=== PATIENT | female | born 1955 | race Caucasian/White ===

== ENCOUNTER 2025-04-06 13:42 | Outpatient (CLI) | payer OTHER, SELFPAY ==
--- NOTE | 2025-04-06 14:03 | ECG_ITS ---
Test Date: 2025-04-06 14:18:32 Measurements Intervals [place] Rate: 59 P: 43 NH: 159 QRS: 32 QRSD: 87 T: 38 QT: 399 QTc: 396 Interpretive Statements SINUS BRADYCARDIA CONSIDER RIGHT VENTRICULAR CONDUCTION DELAY BASELINE ARTIFACT- AVR, V4 BORDERLINE ECG No previous ECG available for comparison Electronically Signed On 04-06-2025 14:20:24 CDT by Evens Meza D.O.
== END 2025-04-06 13:43 | disposition home or self-care (01) ==
PROVIDERS: PCP Family Medicine; Visit Provider Podiatrist Foot & Ankle Surgery
DX: Z01.818 Encounter for other preprocedural examination (principal)
CPT/HCPCS: 93005